=== PATIENT | male | born 1950 | race Caucasian/White ===

== ENCOUNTER 2018-12-27 08:23 | Day surgery (SDC) | payer OTHER ==
[~2018-12-27] VITALS: Ht 185.4 cm; Wt 99.8 kg
[~2018-12-27 08:23] MED LIST: AMLO10TA7 PO; APRE30TA2 PO; ASPI-1197 PO; FLUT1BLS3 IH; LISI-613 PO; METF-444 PO; PRAV40TA3 PO; RANI150T7 PO; SODIUM CHLORIDE 0.9% 1000ML 1,000 ML IV ONE; UBID100C PO
[2018-12-27 10:20] VITALS: BP 150/80
--- NOTE | 2018-12-27 10:32 | NUR ---
nursing regarding abdominal ekg report given to kavon with anesthesia no orders recd Addendum: 12/27/18 at 1034 by HERB COONEY RN Amended: Links added.
[2018-12-27] MEDS ORDERED: PROPOFOL 10 MG/ML 20ML VIAL IV ONE (11:22)
[2018-12-27 11:37] VITALS: BP 104/44
[2018-12-27 11:42] VITALS: BP 113/46
[2018-12-27 11:47] VITALS: BP 118/65
[2018-12-27 11:52] VITALS: BP 146/65
== END 2018-12-27 12:02 | disposition home or self-care (01) ==
LOC: ENDO 08:23 → DAH 08:23 → ENDO 12:02
PROVIDERS: ATTEND Internal Medicine
DX: Z12.11 Encounter for screening for malignant neoplasm of colon (principal); D12.4 Benign neoplasm of descending colon; K57.30 Diverticulosis of large intestine without perforation or abscess without bleeding; K64.0 First degree hemorrhoids; Z86.010 Personal history of colon polyps; I10 Essential (primary) hypertension; E78.5 Hyperlipidemia, unspecified; J44.9 Chronic obstructive pulmonary disease, unspecified; G47.30 Sleep apnea, unspecified; L40.9 Psoriasis, unspecified; Z98.890 Other specified postprocedural states; Z79.82 Long term (current) use of aspirin; Z79.899 Other long term (current) drug therapy; Z88.0 Allergy status to penicillin; Z95.5 Presence of coronary angioplasty implant and graft; Z98.52 Vasectomy status
CPT/HCPCS: 45380; 82948 ×2; 88305; 93005; A4606; J2704; J7030

== ENCOUNTER → 2019-06-29 | Outpatient (CLI) | payer OTHER ==
[~2019-06-29] MED LIST changes: -SODIUM CHLORIDE 0.9% 1000ML 1,000 ML IV ONE
== END | disposition home or self-care (01) ==
LOC: EDBD → SLP 20:32
PROVIDERS: ATTEND Internal Medicine
DX: G47.33 Obstructive sleep apnea (adult) (pediatric) (principal)
CPT/HCPCS: 95810

== ENCOUNTER → 2019-07-04 | Outpatient (CLI) | payer OTHER | END | disposition home or self-care (01) | LOC: EDBD → SLP 20:23 → EDBD 07-05 20:30 | PROVIDERS: ATTEND Internal Medicine | DX: G47.33 Obstructive sleep apnea (adult) (pediatric) (principal); R09.02 Hypoxemia | CPT/HCPCS: 95811 ==